=== PATIENT | female | born 1940 | race Asian ===

== ENCOUNTER 2021-10-22 23:56 | Emergency (ER) | payer OTHER ==
[~2021-10-22] VITALS: Ht 162.6 cm; Wt 85.3 kg
[2021-10-23 00:33] LABS: POTASSIUM 4.2 mmol/L (3.6-5.2)
[2021-10-23 00:45] LABS: PLATELET COUNT 209 K/uL (152-353)
[2021-10-23 01:27] VITALS: BP 162/81; TEMP 97.1
[2021-10-23] MEDS ORDERED: VITAMIN D50000 UNIT PO (12:20)
[2021-10-23] MEDS ORDERED: HALO5TAB10 PO (12:21)
[2021-10-23] MEDS ORDERED: MELATONIN3 M1 PO (12:22)
[2021-10-23] MEDS ORDERED: TYLENOL325 MG PO (12:24)
[2021-10-23] MEDS ORDERED: MIRALAX17 GM PO (12:25)
[2021-10-23] MEDS ORDERED: VALPROIC A250 MG/5 M PO (12:26)
[2021-10-23] MEDS ORDERED: GLUC1KIT INJ (12:28)
[2021-10-23] MEDS ORDERED: OLANZAPINE10 M1 IM (12:29)
[2021-10-23] MEDS ORDERED: RISPERDAL12.5 MG IM (12:31)
[2021-10-23] MEDS ORDERED: BENZ1TAB43 PO (12:33)
[2021-10-23] MEDS ORDERED: AMLODIPINE BESYLATE PO (12:34)
[2021-10-23] MEDS ORDERED: CLONIDINE0.2 MG/24 TD (12:35)
[2021-10-23] MEDS ORDERED: METFORMIN HYD1000 MG PO (12:36)
== END 2021-10-23 01:30 | disposition still patient (30) ==
LOC: ED 23:56 → EDBD 23:56 → ED 10-23 01:30
PROVIDERS: Hospitalist
DX: F20.0 Paranoid schizophrenia (principal); F32.9 Major depressive disorder, single episode, unspecified; F41.8 Other specified anxiety disorders; Z11.52 Encounter for screening for COVID-19; Z04.6 Encounter for general psychiatric examination, requested by authority
CPT/HCPCS: 36415; 80053; 85027; 87635; 93005; 99283; U0003